=== PATIENT | female | born 1985 | race Two or more races ===

== ENCOUNTER → 2025-03-24 | Outpatient (CLI) | payer MEDICAID, SELFPAY ==
--- NOTE | 2025-03-24 12:00 | XR_ITS ---
Examination: CT middle inner ear, without contrast. 2-D coronal reconstructions. 2-D sagittal reconstructions. Date and time of exam: March 24, 2025 1221 hours INDICATIONS: Right ear pain and pressure draining 2 weeks, diagnosis chronic mastoiditis CTDI: vol (mGy): 16.5 DLP: (mGycm):157 Technique: Multiple 1.0 mm axial sections of the middle inner ears bilaterally. High-resolution 64 slice scanner utilized. 2-D coronal reconstructions 2-D sagittal reconstructions Low dose protocols were performed. One or more of the following dose reduction techniques were used; automated exposure control, adjustment of the mA and/or KV according to patient size, use of iterative reconstruction technique. Findings: Axial sections of the right demonstrate significantly reduced mastoid aeration. Fluid in right mastoid air cells Presumed surgical defect in the right mastoid air cells coronal image 153 Jugular fossa and carotid canal do not appear remarkable. No deformity of the ossicles. Porus acusticus internus does not exhibit erosion. Cochlear apparatus unremarkable. Semicircular canals normal. External auditory canal open. Minimal right otitis media Coronal reconstructions demonstrate no erosion of the scutum. No soft tissue mass in the attic or Prussak's space is seen. Ossicular mass intact. Axial sections of the left demonstrate significantly reduced mastoid aeration. Fluid in left mastoid air cells Jugular fossa and carotid canal do not appear remarkable. No deformity of the ossicles. Porus acusticus internus does not exhibit erosion. Cochlear apparatus unremarkable. Semicircular canals normal. External auditory canal open Coronal reconstructions demonstrate no erosion of the scutum. No soft tissue mass in the attic or Prussak's space is seen. Ossicular mass intact. Roof of the mastoid air cells appear intact IMPRESSION: Prominent bilateral chronic mastoiditis Bilateral acute mastoiditis Presumed surgical defect right mastoid air cells Minimal right otitis media
== END | disposition home or self-care (01) ==
LOC: SCAT 11:36
PROVIDERS: Referring Provider Otolaryngology; Visit Provider Otolaryngology
DX: H70.13 Chronic mastoiditis, bilateral (principal); H70.003 Acute mastoiditis without complications, bilateral; H66.91 Otitis media, unspecified, right ear
CPT/HCPCS: 70480

== ENCOUNTER 2025-04-14 13:00 | Day surgery (SDC) | payer MEDICAID, SELFPAY ==
[2025-04-13 15:17] VITALS: BMI 25.7
[2025-04-13 15:49] LABS: HCG Qualitative,Urine Negative
[2025-04-14] VITALS (7 sets, daily range): BP systolic 115–127; BP diastolic 60–76; PULSE 53–101; RESP 13–21; TEMP 36.3–36.6; O2SAT 97–99
[2025-04-14] MEDS: RINGERS LACTATED 1000 ML 1,000 ML 20 ML IV (14:02)
--- NOTE | 2025-04-14 15:43 | ESOP_ITS ---
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 The tympanic membrane was generally thickened. The ossicular chain was intact and mobile. Chorda tympani nerve was not identified. There was no sign of acute infection. Procedure Description Indications: This is a 39-year-old female who a few years ago had a right tympanomastoidectomy the infection resolved but the patient redeveloped another perforation. This was treated approximately a year ago with the cartilaginous and bio design graft but this eventually broke down as well. The patient wished to have 1 more attempt at repairing the perforation. She is aware of the surgical risk and anticipated outcomes. Patient was marked and shaved in the preoperative setting. She was transferred to the operative suite where she was anesthetized and intubated. Timeout was performed. The patient was sterilely prepped and draped postauricular area was injected as well as external auditory canal with 1% lidocaine and 1 100,000 dilution epinephrine. Less than 5 cc total used. External canal was irrigated with warm saline solution and suction and the perforation was visualized. Then went back and created a small postauricular incision and harvested the postauricular scar tissue from her previous surgery. This was pressed and dried. Incision was later closed with 4-0 Vicryl and Dermabond. A posterior tympanomeatal flap was created and the tympanic membrane elevated off the long process of the incus. There were no adhesions to the promontory. A dry piece of Surgifoam was then placed in the middle ear anteriorly. The graft to been harvested previously was placed in an underlay fashion and then pulled through the small perforation anteriorly and draped on top of the tympanic membrane. It was tucked between the tympanic membrane and the long process of the incus. It was then draped forward and the middle ear packed with Surgifoam dipped in saline. The graft was then draped on the posterior canal wall as well as the posterior tympanomeatal flap. There was good coverage present. More packing was placed on top of the graft and tympanic membrane. Mupirocin antibiotic oi ntment was then placed on top of that. Small meatal plasty was performed as there was some scar tissue superiorly this was done with a 15 blade at the onset of the procedure. The external meatus was then packed with Adaptic and a sterile cottonball. Patient was awakened and taken the recovery room in stable condition Anesthesia GETA Pathology / specimen None Estimated Blood Loss 5 Surgeon Walt Bourgeois DO Surgical Staff Operation Date: 04/14/25 15:15 Case Staff Anesthesiologist: Efren Kruse
--- NOTE | 2025-04-14 15:50 | SUR.PHASEI ---
1550:pr received from OR via [facility]. received report from CIERRA Villarreal and Dr. Kruse. oral airway in place. no s/s of resp. distress or discomfort. no s/s of pain or discomfort. cotton ball to right ear clean, dry and intact. no bleeding noted. derma brower x1 to posterior side of the right ear clean, dry and intact. no bleeding observed.
--- NOTE | 2025-04-14 16:09 | SUR.PHASEI ---
1609: pt c/o soreness in the throat, given ice chips, tolerated well.
[2025-04-14] MEDS: ONDANSETRON INJ 2 MG/ML INJ 2 ML 4 MG IVP (16:16)
--- NOTE | 2025-04-14 16:23 | SUR.PHASEII ---
pt alert and oriented x3. no s/s of resp. distress or discomfort. denies any c/o pain or discomfort. cotton ball to right ear clean, dry and intact. no bleeding noted. derma brower x1 to posterior side of the right ear clean, dry and intact. no bleeding observed.
--- NOTE | 2025-04-14 16:56 | SUR.PHASEII ---
1656: pt discharge to home via wheelchair. pt alert and oriented to name, place and time. no s/s of resp. distress or discomfort. denies s/s of pain or discomfort. cotton ball to right ear clean, dry and intact. no bleeding noted. derma brower x1 to posterior side of the right ear clean, dry and intact. no bleeding observed. able to drink water with ice without any difficulty. discharge instructions given to patient, son and via telephone platinum smith-Ruel Horn, all questions were answered. al;l belongings brought given back to patient.
== END 2025-04-14 16:56 | disposition home or self-care (01) ==
PROVIDERS: PCP Family Medicine; Referring Provider Otolaryngology; Visit Provider Otolaryngology
PROC: (CPT 69631; principal; 2025-04-14 15:00)
DX: H90.2 Conductive hearing loss, unspecified (principal); H72.91 Unspecified perforation of tympanic membrane, right ear; L90.5 Scar conditions and fibrosis of skin
CPT/HCPCS: 69631; 81025; A4217; A4649; J0171; J0690; J1100; J2405; J2704; J2710; J2765; J3010; J3473; J3490; J7120; A9270; J1596

== ENCOUNTER 2025-09-26 16:26 | Emergency (ER) | payer MEDICAID, SELFPAY ==
[2025-09-26 16:50] VITALS: BP 145/94; PULSE 85; RESP 19; TEMP 37.2; O2SAT 97; BMI 25.4
--- NOTE | 2025-09-26 16:53 | XR_ITS ---
Examination: CT middle inner ear, without contrast. 2-D coronal reconstructions. 2-D sagittal reconstructions. Date and time of exam: September 26, 2025, 1714 hours INDICATIONS: Bilateral ear pain beginning 1 week ago COMPARISON: March 24, 2025 CTDI: vol (mGy): 15.8 DLP: (mGycm): 172 Technique: Multiple 1.0 mm axial sections of the middle inner ears bilaterally. High-resolution 64 slice scanner utilized. 2-D coronal reconstructions 2-D sagittal reconstructions Low dose protocols were performed. One or more of the following dose reduction techniques were used; automated exposure control, adjustment of the mA and/or KV according to patient size, use of iterative reconstruction technique. Findings: Axial sections of the right demonstrate markedly reduced mastoid aeration. Jugular fossa and carotid canal do not appear remarkable. No deformity of the ossicles. Porus acusticus internus does not exhibit erosion. Cochlear apparatus unremarkable. Semicircular canals normal. External auditory canal open. Coronal reconstructions demonstrate no erosion of the scutum. No soft tissue mass in the attic or Prussak's space is seen. Ossicular mass intact. Axial sections of the left demonstrate markedly reduced mastoid aeration. Jugular fossa and carotid canal do not appear remarkable. No deformity of the ossicles. Porus acusticus internus does not exhibit erosion. Cochlear apparatus unremarkable. Semicircular canals normal. External auditory canal open Coronal reconstructions demonstrate no erosion of the scutum. No soft tissue mass in the attic or Prussak's space is seen. Ossicular mass intact. Roof of the mastoid air cells appear intact bilaterally. Impression: Advanced bilateral chronic mastoiditis Negative for acute mastoiditis Negative for otitis media, negative for otitis externa Negative for acquired cholesteatoma Mild chronic ethmoid maxillary antral sinusitis
--- NOTE | 2025-09-26 16:54 | PD.EDRME ---
Rapid Medical Screening Exam [facility] Arrival date/time: 09/26/25 16:26 39-year-old female with no known medical history presents to the emergency room with a chief complaint of bilateral ear drainage tenderness and difficulty hearing x 2 weeks. Patient states she has been seen by her primary care provider and given Augmentin and ofloxacin with no improvement to her symptoms. I have greeted and performed a focused initial assessment of this patient. A comprehensive ED assessment and evaluation of the patient, analysis of all test results, and completion of the medical decision making process will be conducted by additional ED providers. Chief Complaint: General Adult/Misc Complain Time Seen by Provider: 09/26/25 16:31 Vital signs: Vital Signs Temperature 98.9 F 09/26/25 16:50 Pulse Rate 85 09/26/25 16:50 Respiratory Rate 19 09/26/25 16:50 Blood Pressure 145/94 H 09/26/25 16:50 Pulse Oximetry (%) 97 09/26/25 16:50 Oxygen Delivery Method Room Air 09/26/25 16:50 Vital signs reviewed by provider: Yes Exam: Bilateral ruptured tympanic membranes with drainage and external ear canal tenderness GCS of 15 Clinical Impression: Mastoiditis/severe ear infection
[2025-09-26 17:18] LABS: Basophils # (Auto) 0.0 Thou/mm3 (0.0-0.2); Basophils % (Auto) 0 % (0-2.5); Eosinophils # (Auto) 0.1 Thou/mm3 (0.0-0.5); Eosinophils % (Auto) 1 % (0-10); Hematocrit 43.3 % (36.0-46.0); Hemoglobin 14.6 g/dL (12.0-16.0); Immature Granulocytes Auto 0.07 Thou/mm3 (0.00-0.00); Lymphocytes # (Auto) 3.9 Thou/mm3 (1.0-4.8); Lymphocytes % (Auto) 31 % (10-50); Mean Corpuscular HGB Conc 33.7 g/dl (31.0-37.0); Mean Corpuscular Hemoglobin 30.4 pg (25.0-35.0); Mean Corpuscular Volume 90 fL (80-100); Monocytes # (Auto) 0.7 Thou/mm3 (0.0-0.8); Monocytes % (Auto) 6 % (0-12); Neutrophils # (Auto) 7.8 Thou/mm3 (1.8-7.7); Neutrophils % (Auto) 62 % (37-80); Nucleated Red Blood Cell # 0.00 Thou/mm3 (0.00-0.00); Nucleated Red Blood Cell % 0 /100 WBC (0); Platelet Count 220 Thou/mm3 (140-440); RDW Standard Deviation 39.8 fL (36.4-46.3); Red Blood Count 4.81 Miln/mm3 (4.00-5.20); White Blood Count 12.6 Thou/mm3 (3.6-11.0)
[2025-09-26 17:49] LABS: Sed Rate (ESR) 4 mm/hr (0-20)
[2025-09-26 18:46] LABS: Alanine Aminotransferase 18 U/L (10-49); Albumin, Serum 4.8 gm/dL (3.5-5.0); Albumin/Globulin Ratio 1.8 (1.2-2.2); Alkaline Phosphatase 76 U/L (46-116); Anion Gap 8 (7-16); Aspartate Amino Transferase 22 U/L (0-34); BUN/Creatinine Ratio 18 Ratio (12-20); Bilirubin,Total 1.5 mg/dL (0.3-1.2); Blood Urea Nitrogen 11 mg/dL (9-23); Calcium 10.0 mg/dL (8.3-10.6); Calcium (Corrected) 10.0 mg/dL (8.5-10.1); Carbon Dioxide 27.1 mMol/L (20.0-31.0); Chloride 105 mMol/L (98-107); Creatinine (Component) 0.6 mg/dL (0.6-1.3); Estimated Creatinine Clearance 123.1 mL/min (>60); Globulin 2.7 gm/dL (2.3-3.5); Glucose 84 mg/dL (74-106); Osmolality,Calculated 277 (275-295); Potassium 4.1 mMol/L (3.4-5.1); Sodium 140 mMol/L (136-145); Total Protein 7.5 gm/dL (5.7-8.2); eGFR > 60 See Note
[2025-09-26 18:47] LABS: C-Reactive Protein < 0.5 mg/dL (0.0-0.9)
[2025-09-26 19:37] VITALS: BP 139/81; PULSE 60; RESP 18; TEMP 36.8; O2SAT 98
--- NOTE | 2025-09-26 19:54 | PD.EDADULT ---
ED General RME/HPI General Chief complaint: General Adult/Misc Complain Stated complaint: BILATERAL EAR PAIN X 1 WEEK, DIZZY TODAY Time Seen by Provider: 09/26/25 16:31 Arrival date/time: 09/26/25 16:26 RME / HPI RME / HPI narrative: 09/26/25 16:26 39-year-old female with no known medical history presents to the emergency room with a chief complaint of bilateral ear drainage tenderness and difficulty hearing x 2 weeks. Patient states she has been seen by her primary care provider and given Augmentin and ofloxacin with no improvement to her symptoms. I have greeted and performed a focused initial assessment of this patient. A comprehensive ED assessment and evaluation of the patient, analysis of all test results, and completion of the medical decision making process will be conducted by additional ED providers. Dr. Ortiz?s Main ED Evaluation: 39yo female presents to the ED for a chief complaint of bilateral ear pressure. Patient endorses having a history of chronic ear infections, reporting she's had surgery on her right ear three times without much improvement. Patient states she's had worsening bilateral ear pressure and feels faint throughout today. Patient notes she is on Augmenting without improvement of symptoms. She denies any fever, chills, or any other associated symptoms. NKA. Patient does follow-up with an ENT specialist. Related Data Home Medications ?Medication ?Instructions ?Recorded ?Confirmed cetirizine 10 mg tablet 10 mg PO BID 02/08/22 04/13/25 diphenhydramine HCl 25 mg capsule 25 mg PO [id number] PRN Allergy 01/08/23 04/13/25 (Banophen) Symptoms Previous Rx's ?Medication ?Instructions ?Recorded prednisone 50 mg tablet 50 mg PO QDAY #7 tabs 09/26/25 Allergies Allergy/AdvReac Type Severity Reaction Status Date / Time No Known Allergies Allergy Verified 09/26/25 16:30 Review of Systems Review of Systems Systems Reviewed: All systems reviewed, normal except as documented Past Medical History Past Medical History NEUROLOGIC: Negative Neurological Disorders or Seizures CARDIAC: Negative Cardiac Disorders or Congestive Heart Failure RESPIRATORY: Positive Asthma (not taking any inhaler) and Tuberculosis (POSITIVE PPD. TREATED IN 2014); Negative Chronic Obstructive Pulmonary Disease (COPD) GASTROINTESTINAL: Positive Gastrointestinal Disorders and Gastroesophageal Reflux Disease; Negative Hepatitis or Colorectal Cancer GENITOURINARY: Negative Genitourinary Disorders or Renal Disease REPRODUCTIVE: Positive Endometriosis and Previous Pregnancies; Negative Breast Cancer MUSCULOSKELETAL: Negative Musculoskeletal Disorders, Bone Cancer or Carpal Tunnel Syndrome ENT: Positive Ear Infection (x2) ENDOCRINE: Negative Endocrine Disorders, Diabetes Mellitus Type 1 or Diabetes Mellitus Type 2 HEMATOLOGIC: Negative Blood Disorders PSYCHO/SOCIAL: Positive Depression (not taking med anymore) and Anxiety (not taking med anymore) OTHER HISTORY: Negative Hospitalization, Autoimmune Disease, Shingles, Falls, Blood Transfusions, Blood Transfusion Reaction, Anesthesia Reactions, Organ Transplant, MRSA, Chicken Pox, Measles, Mumps, Clostridium Difficile, Cancer, Breast Cancer, Cervical Cancer, Colorectal Cancer, Lung Cancer or Ovarian Cancer Family History FAMILY HISTORY: Positive Family Surgery; Negative Family Psychiatric Problems, Family Respiratory Disorders, Family Cardiac Disorders, Family Gastrointestinal Problems, Family Cancer or Family Anesthesia Reaction Surgical History SURGICAL: Positive Ear Surgery (right tympanoplastyx2) and Section (x1); Negative Cardiac Surgery, Endocrine Surgery, Abdominal Surgery, Nephrectomy, Joint Replacement, Amputation, Open Reduction Internal Fixation, Arthroscopy, Neurologic Surgery or Organ Transplant Social History SMOKING STATUS: Never smoker ED Exam Narrative Physical exam: Generally patient is alert in no obvious distress, head shows no swelling or tenderness to either mastoid regions. Right TM is clear but scarred without obvious perforation, left TM is without erythema with a perforation to the inferior 6 o'clock position of the tympanic membrane. No drainage from either ear. Heart regular rate and rhythm, lungs clear to auscultation equal bilaterally, abdomen soft bowel sounds present also nontender, neurologic exam shows [place] Coma Scale of 15 without ataxia or focal motor deficit Course Quality Measures none Orders Category Date Time Status CT ear mid-inner wo Stat Exams 09/26/25 16:53 Completed CBC Stat Lab 09/26/25 17:05 Completed CMP [Comprehensive Metabolic Panel] Stat Lab 09/26/25 17:05 Completed CRP [C-Reactive Protein] Stat Lab 09/26/25 17:05 Completed ESR [Sed Rate (ESR)] Stat Lab 09/26/25 17:05 Completed predniSONE Med 09/26/25 20:10 Once 60 mg PO X1 ONE Vital Signs Vital signs: Vital Signs Temperature 98.9 F 09/26/25 16:50 Pulse Rate 85 09/26/25 16:50 Respiratory Rate 19 09/26/25 16:50 Blood Pressure 145/94 H 09/26/25 16:50 Pulse Oximetry (%) 97 09/26/25 16:50 Oxygen Delivery Method Room Air 09/26/25 16:50 Discharge Plan Plan Patient Disposition: HOME (Self Care) Prescriptions/Referrals Prescriptions/Med Rec: New prednisone 50 mg tablet 50 mg PO QDAY Qty: 7 0RF No Action cetirizine 10 mg tablet 10 mg PO BID Patient Comments: take 1 tablet by mouth twice a day diphenhydramine HCl [Banophen] 25 mg capsule 25 mg PO [id number] PRN (Reason: Allergy Symptoms) Patient Comments: take 1 tab by mouth once a day as directed Referrals: Yolis Chavira, BARBARA-C [Primary Care Provider] - In 1 week Problem List Clinical Impression: Chronic mastoiditis Patient/Caregiver Discharge Instructions Additional Instructions: Continue current medications. Prednisone as prescribed. Follow-up with your ears nose and throat specialist. Print Language: Upper Sorbian Stand Alone Forms: Lilia Award Info., Patient Portal Info Letter MDM Narrative MDM hospital course (for use when minimal MDM required): Scribe Attestation: 09/26/25 - Eladia Vega am scribing for and in the presence of Dr. Ortiz. I reviewed all labs. CT scan of the mastoid air cells showed no acute mastoiditis, only chronic mastoiditis. Patient is complaining of pressure type sensation to her left ear. She has had multiple surgeries to her right ear in the past. Steroid may help with this pressure. She will be given prednisone 60 mg p.o. here in the emergency room. Prednisone as prescribed. She is to follow-up with her ears nose and throat doctor. Clinical Information Provided by: patient Medical Records reviewed [facility] (Per chart review, patient was seen here on 12/13/22 for otitis media.) Meds/Rx considered, not ordered None Labs/Rad/Tests considered, not ordered None Chronic Illness/Social Conditions Explain: Hx TB, asthma Labs Labs: interpreted by me Imaging Imaging interpretation: interpreted by me Imaging Interpretation(s): Alyx Lu Imaging Report Signed Patient: HODA MOORE. Record#: [id number] Birthdate: 1985 Age/Sex: 39 / F Location: [facility] Attending Dr: Ordering Physician: Eron Arriaza Date of Service: 09/26/25 Procedure(s): CT ear mid-inner wo Accession Number(s): [id number] cc: Yolis Chavira-Melvin; Eron Arriaza; Oscar Lane MD~ Examination: CT middle inner ear, without contrast. 2-D coronal reconstructions. 2-D sagittal reconstructions. Date and time of exam: September 26, 2025, 1714 hours INDICATIONS: Bilateral ear pain beginning 1 week ago COMPARISON: March 24, 2025 CTDI: vol (mGy): 15.8 DLP: (mGycm): 172 Technique: Multiple 1.0 mm axial sections of the middle inner ears bilaterally. High-resolution 64 slice scanner utilized. 2-D coronal reconstructions 2-D sagittal reconstructions Low dose protocols were performed. One or more of the following dose reduction techniques were used; automated exposure control, adjustment of the mA and/or KV according to patient size, use of iterative reconstruction technique. Findings: Axial sections of the right demonstrate markedly reduced mastoid aeration. Jugular fossa and carotid canal do not appear remarkable. No deformity of the ossicles. Porus acusticus internus does not exhibit erosion. Cochlear apparatus unremarkable. Semicircular canals normal. External auditory canal open. Coronal reconstructions demonstrate no erosion of the scutum. No soft tissue mass in the attic or Prussak's space is seen. Ossicular mass intact. Axial sections of the left demonstrate markedly reduced mastoid aeration. Jugular fossa and carotid canal do not appear remarkable. No deformity of the ossicles. Porus acusticus internus does not exhibit erosion. Cochlear apparatus unremarkable. Semicircular canals normal. External auditory canal open Coronal reconstructions demonstrate no erosion of the scutum. No soft tissue mass in the attic or Prussak's space is seen. Ossicular mass intact. Roof of the mastoid air cells appear intact bilaterally. Impression: Advanced bilateral chronic mastoiditis Negative for acute mastoiditis Negative for otitis media, negative for otitis externa Negative for acquired cholesteatoma Mild chronic ethmoid maxillary antral sinusitis Dictated By: Oscar Lane MD Signed By: <Electronically signed by Oscar Lane MD in [place]> 09/26/25 5095 Medication Administration(s) Medication Administration History Prednisone (Prednisone 20 Mg Tablet) 60 mg PO X1 ONE Stop: 09/26/25 20:11 see above Diagnosis Differential Diagnosis ED Complaint MDM: See MDM
== END 2025-09-26 20:21 | disposition home or self-care (01) ==
PROVIDERS: Nurse Practitioner Family; Emergency Provider Emergency Medicine
DX: H70.13 Chronic mastoiditis, bilateral (principal); J32.8 Other chronic sinusitis
CPT/HCPCS: 36415; 70480; 80053; 85025; 85652; 86140; 99283; J7512